=== PATIENT | male | born 1980 | race Caucasian/White ===

== ENCOUNTER 2020-03-13 07:46 | Day surgery (SDC) | payer OTHER, MEDICAID, SELFPAY ==
[2020-03-08 11:05] VITALS: BMI 27.7
[2020-03-13] VITALS (16 sets, daily range): BP systolic 101–140; BP diastolic 59–76; PULSE 60–89; RESP 14–169; TEMP 36.4–36.9; O2SAT 95–100; BMI 27.7
--- NOTE | 2020-03-13 | DI.RAD.S_ITS ---
PROCEDURE: XR PELVIS 1-2V INDICATIONS: total right hip TECHNIQUE: 1 view of the lower pelvis acquired. COMPARISON: [facility], , XR PELVIS WITH BILATERAL LATERAL HIPS, 09/20/2018, 0:23. FINDINGS: Bones: Patient is status post right hip arthroplasty, with hardware components in expected positions. The hip joint appears congruent. 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 Soft tissues: Overlying postoperative changes are noted. No suspicious soft tissue densities. IMPRESSION: Expected postoperative appearance Dictated by: Zaheer Fontana M.D. on 03/13/2020 at 15:32 Approved by: Zaheer Fontana M.D. on 03/13/2020 at 15:33
--- NOTE | 2020-03-13 09:20 | PM.PREOP ---
Pre-operative Note COVID-19 COVID-19 status: Negative Result date/Date tested (Pos, Neg/Pending): 03/11/20 Interval Note History & Physical reviewed/Exam performed by Physician: Yes Changes to H&P: No
[2020-03-13] MEDS: CEFAZOLIN 2 GM/100 ML FROZ.PIGGY IV ×2 (09:54→18:01)
[2020-03-13] MEDS: TRANEXAMIC ACID 1,000 MG VIAL 1000 MG INJ ×2 (10:22→11:12)
--- NOTE | 2020-03-13 10:35 | SUR.OPER ---
Lateral on padded OR bed. Gel axillary roll. Arms secured on padded armboard with pillow supporting top arm. Padded hip positioner braces x4 - anterior and posterior chest and pelvis. Additional gel pad used anterior pelvis. Gel pad under bottom leg from knee to foot and secured with tape over sheet.
[2020-03-13] MEDS: ROPIVACAINE 0.5% PF 5 MG/ML 20ML VIAL 60 ML INJ (10:39)
[2020-03-13] MEDS: MORPHINE 4 MG/ML INJ INJ (10:40)
[2020-03-13] MEDS: KETOROLAC 30 MG/ML VIAL IV (10:40)
[2020-03-13] MEDS: LACTATED RINGERS 1,000 ML 42 ML IV (11:17)
--- NOTE | 2020-03-13 11:30 | P.OP_ITS ---
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 The patient has pain with activities and at rest, limited ambulation and activity tolerance, difficulties with ADLs, and failure of conservative treatment. We have discussed the nature of condition, treatment options, risks and benefits, and patient elects to proceed with total hip arthroplasty and gives informed consent. Surgeon: Braulio Arizmendi Field Sales Executive: Rex Rocha Anesthesia Type: Spinal Operative Notes Closure Type: primary Specimen(s): none sent Prosthetic devices, grafts, tissues, transplants, or devices: Acetabulum: Kellogg [employer]hew R3 acetabular component size 54 mm Femoral component: Kellogg [employer]hew Anthology stem size 6 with standard offset Femoral head: 36 mm + 0 Oxinium Estimated Blood Loss (mL): 100 Blood products transfused: none Procedure in detail: After satisfaction induction of anesthetic, and administration of IV antibiotics, the patient was positioned in the lateral decubitus position with all bony prominences well padded and pelvic position s ecured using a hip general farm hand positioning device. Right hip and lower extremity prepped and draped in the usual sterile fashion, 1st dose of intravenous tranexamic acid was administered, then a longitudinal incision was created centered over the greater trochanter and carried sharply through the skin and subcutaneous tissues down to the fascia natacha which was divided longitudinally and retracted with a Charnley retractor. External rotators visualize, cut, tagged, and retracted posteriorly, then the capsule was cut in a T-type fashion with the corners tagged and retracted. Hip was dislocated and femoral neck cut made according to preoperative templating. Acetabular retractors then placed, and the acetabular labrum and osteophytes were excised. The acetabulum was then sequentially reamed to 53 mm with an excellent circumferential ream and fit with the trial. The trial component was removed and a permanent size 54 mm Kellogg [employer] Nephew R3 acetabular component was selected, positioned, and impacted with satisfactory position and fixation achieved. Permanent liner was then inserted with the elevated lip directed posteriorly. Soft tissue then removed off the lateral femoral neck in the lateral neck was entered using a box osteotome. T- handled reamers placed down the canal followed by sequential broaching to 6 with the final broach left in place for trial reduction which demonstrated excellent leg length, range of motion, and stability characteristics with a 36 mm +0 trial ball. The trial and broach were removed, and a permanent size 6 standard offset Kellogg and Nephew anthology stem was selected and inserted with excellent position and fixation achieved. Another trial reduction yielded the above characteristics so the trial ball was exchanged for a permanent 36 mm +0 Oxinium ball. The hip was irrigated and reduced and excellent leg length range of motion and stability characteristics were achieved and maintained. Periarticular tissues were infiltrated with ropivacaine, morphine, and Toradol. The hip was copiously irrigated, and the capsule repaired with #2 Ethibond, and the piriformis was repaired back to the greater trochanter with the same. Fascia natacha closed with interrupted #1 Ethibond sutures, and the subcutaneous tissues were closed in 2 layers of 0 Vicryl and 2 0 Vicryl. Skin was closed with karey and sterile dressings applied. Second dose of tranexamic acid was administered intravenously, and the anesthetic was terminated. Complications: none Post-operative Condition: stable Disposition: PACU Plan for aftercare: Patient will be admitted to the acute care chung, and anticipate discharge on postop day 1 with follow-up in office in 10-14 days. Outpatient physical therapy will be arranged and patient will continue to observe posterior hip precautions. Patient will continue use of postoperative aspirin for 6 weeks for DVT prophylaxis.
[2020-03-13] MEDS: fentaNYL 100 MCG/2 ML INJ IV ×2 (12:28→12:37)
[2020-03-13] MEDS: OXYCODONE/ACETAMINOPHEN 5/325 TABLET 1 TAB PO ×3 (13:07→22:34)
[2020-03-13] MEDS: LACTATED RINGERS 1,000 ML 125 ML IV ×2 (14:03→21:50)
[2020-03-13] MEDS: ACETAMINOPHEN 325 MG TABLET 650 MG PO ×2 (14:50→20:08)
--- NOTE | 2020-03-13 15:30 | PT.IIE ---
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) Surgery Performed Operation Date: 03/13/20 09:45 Actual Procedures p Total Hip Arthroplasty(Right) - Braulio Arizmendi MD Physical Therapy Inpatient Evaluation/Re-Eval M1 PT/OT-IP Prior Functional Status Start: 03/13/20 17:09 Freq: NEEDED Status: Active Protocol: Document 03/13/20 15:30 AB (Rec: 03/13/20 17:29 AB [id number]) Medical Review Prior Functional Status Medical History Reviewed Yes Communication able to make needs known Mobility and Gait pt stated that he is modified independent with all mobilities and amblation using SPC. stated that he has been having hip problems for ~ 1 year 1/2 and that his L hip is worse thatn R but R hip collapsed already and they have to do surgery on that first. Social History Household Members family Living Arrangements Mobile home Number of Floors (Floors) One Floor Number of Stairs To Enter/Railing? pt stated that he lives on a [employer] bus that they turned into a home has 3 steps to enter; has handle on the door of the bus; stated that they are going to put a ramp in there but currently does not have it yet Home Environment Tub/Shower Home Equipment Straight Cane,Bedside Commode, Hand Held Shower Additional Social History Comment pt has a standard vegetable picker walker. 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 M2 PT-IP Current Condition Start: 03/13/20 17:09 Freq: NEEDED Status: Active Protocol: Document 03/13/20 15:30 AB (Rec: 03/13/20 17:29 AB [email or web address]) Physical Therapy Current Condition Current Condition Evaluation Date 03/13/20 Treatment Diagnosis s/p R JULI posterior approach; difficulty in walking Onset Date 03/13/20 Precautions Posterior Hip Precautions No Hip Flexion > 90 degrees,No Hip Internal Rotation,No Hip Adduction Weight Bearing Status Weight Bearing Status Weight Bear as Tolerated Allowed Weight Bearing Amount (enter % RLE WBAT or #) (%) M3 PT-IP Subjective Start: 03/13/20 17:09 Freq: NEEDED Status: Active Protocol: Document 03/13/20 15:30 AB (Rec: 03/13/20 17:29 AB [email or web address]) Subjective Physical Therapy Visit Type Type Initial Evaluation Visit Start Time 15:30 Visit Stop Time 16:42 Total Visit Minutes 72 Number of BRANCH OPERATIONS SPECIALIST Visits 0 Physical Therapy Visit Comments Patient Comments agreeable to do PT Therapy Pain Assessment Pain When Pain Assessed At Rest Pain Present Pain Present Pain Reported Location Hip Intensity 7 Scale Used increases to 8/10 with mobility Pain Management Techniques Apply Cold,Distraction,Re- positioning,Timing of Activity with Medications M4 PT-IP Mobility and Gait Start: 03/13/20 17:09 Freq: NEEDED Status: Active Protocol: Document 03/13/20 15:30 AB (Rec: 03/13/20 17:29 AB [id number]) PT-Bed Mobility Assessment Supine to Sit Supine to Sit Maximum Assistance,1 Person Assistance Sit to Supine Sit to Supine Maximum Assistance,1 Person Assistance PT-Transfer Assessment Sit to and From Stand Sit to and from Stand Moderate Assistance,Maximum Assistance,1 Person Assistance ,Use of Upper Extremities Equipment Transfer Assistive Device Gait Belt,Front Wheeled Walker Orthotic/Prosthetic Devices or Brace: No Comments Mobility Comments pt educated on hip precautions . completed supine to sit max A and max cues. completed sit to stand mod to max A and max cues for hip precautions. pt gets anxious easily and is shaking during mobility. BP 117/69. pt was able to ambulate ~ 10 ft using FWW mod A and cues. requested to go back in bed max A for LE elevation. positioned in bed. call light and table placed within reach . informed pt to call his mom to bring his standard walker from home and set up caregiver training at ~ 1030 am. pt agreed. Pt requested PT to dispense him a FWW if he needs one for home. Gait Assessment Gait Gait Assistance Required: Moderate Assistance,1 Person Assist Distance (Feet) 10 Able to Maintain Weight Bearing Status Yes During Gait Assistive Devices Assistive Device Gait Belt,Front Wheeled Walker Orthotic/Prosthetic Devices or Brace: No Gait Deviations General Gait Pattern Antalgic,Decreased Stride Length,Decreased Feet Clearance,Wide Based Gait Factors Limiting Gait Function Factors Limiting Gait Function Decreased Activity Tolerance, Decreased Strength,Limited Range of Motion,Pain,Poor Balance,Poor Safety Awareness Comments Gait Comments presents with antalgic gait and wide JACINTO during standing and ambulation. needs cues to maintain hip precautions during turns. PT-Balance Assessment Sitting Balance and Reactions Static Sitting Balance Ability Good Dynamic Sitting Balance Ability Good Standing Balance and Reactions Static Standing Balance Ability Fair Dynamic Standing Balance Ability Fair Device Used FWW M5 PT-IP Objective Assessments Start: 03/13/20 17:09 Freq: NEEDED Status: Active Protocol: Document 03/13/20 15:30 AB (Rec: 03/13/20 17:29 AB [email or web address]) Orientation Orientation/Cognition Level of Alertness Alert Orientation Name,Age,Birthday,Month,Date, Year,Day of Week,Place, Situation Language Function Ability No Deficits Noted Safety Awareness Understands Safety Issues Memory Description No Deficits Noted Gross Range of Motion Lower Extremity ROM Impairments increase bilateral LE guarding with pt anticipating pain affecting ROM Strength Lower Extremity Strength Assessment Bilaterally Impaired Comments Strength Comments RLE : hip 2+/5; knee 3+/5 LLE: 3+/5 Muscle Tone Muscle Tone WNL Yes M6 PT-IP Treatment Start: 03/13/20 17:09 Freq: NEEDED Status: Active Protocol: Document 03/13/20 15:30 AB (Rec: 03/13/20 17:29 AB [email or web address]) Physical Therapy Treatment Exercises Exercises Heel Slides Education Education Provided Precautions,Weight Bearing Status,Post-Op Packet,Safety M7 PT-IP Assessment and Plan Start: 03/13/20 17:09 Freq: NEEDED Status: Active Protocol: Document 03/13/20 15:30 AB (Rec: 03/13/20 17:29 AB [email or web address]) PT Summary Assessment and Plan Potential Rehabilitation Potential Good Status of Condition at Evaluation Evolving Summary Impairments Pain,ROM,Strength,Balance, Coordination,Sensation,Tone, Cognition,Bed Mobility, Transfers,Gait,Activity Tolerance Assessment Summary pt s/p R JULI posterior approach and just had surgery this morning. pt also has L hip problems and stated that it was worse that the R hip. pt requiring max A with mobility. pt plans to go home and stated that his mom will be able to assist. set up caregiver training tomorrow morning 03/14/20 at 1030 am. d /c plan depending progress and if his mom will be able to assist him safely. pt stated that he is set up for outpt PT. will continue to assess progress. Goals Bed Mobility Goal Standby Assistance Transfer Goal Standby Assistance,Front Wheeled Walker Gait Goal Standby Assistance,Front Wheel Walker Gait Distance 150 Other Goals up/down 3 steps and 1 handle min A Days to Meet Goals 5 Frequency of Treatment Frequency Of Treatment Twice a Day Treatment Plan Physical Therapy Treatment Plan Bed Mobility Training,Transfer Training,Gait Training, Therapeutic Exercise,Balance Retraining,Post Op Education, Discharge Planning,Hot or Cold Pack,Neuromuscular Re-ed, Coordination Retraining,Manual Therapy Recommendations To Nursing Amount of Assist Needed 1 Person Assist Discharge Recommendations PT Discharge Recommendations Home with Assistance,SNF Rehab ,Outpatient PT Other Discharge Recommendations depending on progress: SNF vs home with assist and outpt PT Equipment Needed for Home Before FWW if not safe with standard Discharge walker Transportation Needs at Discharge Private Vehicle,Wheelchair/ Cabulance
[2020-03-13] MEDS: BUTORPHANOL 1 MG/ML VIAL 0.5 MG IV (20:02)
[2020-03-13] MEDS: DOCUSATE 100 MG CAPSULE PO (20:08)
[2020-03-13] MEDS: ASPIRIN EC 81 MG TABLET PO (20:08)
[2020-03-13] MEDS: hydrOXYzine pamoate 25 MG CAPSULE PO (22:34)
[2020-03-14] MEDS: CEFAZOLIN 2 GM/100 ML FROZ.PIGGY IV (02:29)
[2020-03-14 02:58] VITALS: BP 139/78; PULSE 77; RESP 15; TEMP 36.4; O2SAT 99
--- NOTE | 2020-03-14 04:34 | PC.NURSE ---
Patient VSS, lung sound clear, pain is 5-6/10, denies nausea. PRN Percocet Q4. Patient CMS intact, bulky dressing is clean/dry/intact.
[2020-03-14] MEDS: DOCUSATE 100 MG CAPSULE PO (08:18)
[2020-03-14] MEDS: ACETAMINOPHEN 325 MG TABLET 650 MG PO ×2 (08:18→14:26)
[2020-03-14] MEDS: ASPIRIN EC 81 MG TABLET PO (08:18)
[2020-03-14] MEDS: OXYCODONE IR 5 MG TABLET PO ×3 (08:19→14:51)
[2020-03-14] MEDS: hydrOXYzine pamoate 25 MG CAPSULE PO ×2 (08:21→14:26)
[2020-03-14 09:09] VITALS: BP 134/72; PULSE 87; RESP 16; TEMP 36.8; O2SAT 99
[2020-03-14 11:00] VITALS: BP 127/77; PULSE 82; RESP 19; TEMP 36.8; O2SAT 99
--- NOTE | 2020-03-14 11:16 | PT.IPTN ---
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) Surgery Performed Operation Date: 03/13/20 09:45 Actual Procedures p Total Hip Arthroplasty(Right) - Braulio Arizmendi MD Physical Therapy Treatment Note M2 PT-IP Current Condition Start: 03/13/20 17:09 Freq: NEEDED Status: Active Protocol: Document 03/13/20 15:30 AB (Rec: 03/13/20 17:29 AB [id number]) Physical Therapy Current Condition Current Condition Evaluation Date 03/13/20 Treatment Diagnosis s/p R JULI posterior approach; difficulty in walking Onset Date 03/13/20 Precautions Posterior Hip Precautions No Hip Flexion > 90 degrees,No Hip Internal Rotation,No Hip Adduction Weight Bearing Status Weight Bearing Status Weight Bear as Tolerated Allowed Weight Bearing Amount (enter % RLE WBAT or #) (%) M3 PT-IP Subjective Start: 03/13/20 17:09 Freq: NEEDED Status: Active Protocol: Document 03/14/20 10:33 KS (Rec: 03/14/20 12:57 KS [id number]) Subjective Physical Therapy Visit Type Type Treatment Note Visit Start Time 10:33 Visit Stop Time 11:16 Total Visit Minutes 43 Number of TRAY FILLER Visits 1 Physical Therapy Visit Comments Patient Comments Pt agreeable to work w/ therapy. Pts mom present during treatment. Therapy Pain Assessment Pain When Pain Assessed During Mobility Pain Present Pain Present Pain Reported Location Hip Scale Used no number given Description Pulling,Sharp,Tightness, Throbbing Pain Behaviors Facial Grimacing,Guarding, Holding Area,Moaning, Restlessness,Wincing Pain Management Techniques Elevation,Re-positioning, Timing of Activity with Medications M4 PT-IP Mobility and Gait Start: 03/13/20 17:09 Freq: NEEDED Status: Active Protocol: Document 03/14/20 10:33 KS (Rec: 03/14/20 12:57 KS [id number]) PT-Bed Mobility Assessment Supine to Sit Supine to Sit Contact Guard Assistance,1 Person Assistance Scooting Scooting to Edge of Bed Contact Guard Assistance PT-Transfer Assessment Sit to and From Stand Sit to and from Stand Minimal Assistance,1 Person Assistance,Use of Upper Extremities Equipment Transfer Assistive Device Gait Belt,Front Wheeled Walker Orthotic/Prosthetic Devices or Brace: No Transfers Transfer Destination Chair,Wheelchair Transfer Technique pt ambulated w/ FWW Transfer Ability Level of Assist Minimal Assistance,1 Person Assistance,Use of Upper Extremities Comments Mobility Comments Pt in bed upon arrival from therapy and able to recall 3/3 precautions. Pt CGA for sup<> sit and scooting EOB, but moved slowly and expressed high level of pn despite recent pn meds. Pt Min A for sit<>stand from bed w/ FWW. Pt performed 30 seconds weight shifting prior to initiating gait training and relied heavily on use of BUE to off load BLE. Pt then ambulated ~ 25 ft w/ FWW and Min A and then sat in w/c CGA w/ cues before being transferred to w/ c to transport to stairs. Pt then was able to complete 1 platform step w/ Min A mod cues w/ FWW, but complained of high pain. Pt ambulated ~60 ft back to room Min A w/ FWW and CGA for stand<>sit in chair. Will conduct caregiver training w/ pts mother this afternoon. Pt left in room w/ BANDER AND CELLOPHANER MACHINE HELPER. Gait Assessment Gait Gait Assistance Required: Minimum Assistance,1 Person Assist Distance (Feet) 85 Able to Maintain Weight Bearing Status Yes During Gait Assistive Devices Assistive Device Gait Belt,Front Wheeled Walker Orthotic/Prosthetic Devices or Brace: No Gait Deviations General Gait Pattern Antalgic,Decreased Stride Length,Decreased Feet Clearance,Wide Based Gait Factors Limiting Gait Function Factors Limiting Gait Function Decreased Activity Tolerance, Decreased Strength,Limited Range of Motion,Pain,Poor Balance,Poor Safety Awareness Comments Gait Comments Pt ambulated ~85 ft total w/ Min A and cues w/ FWW. Pt relied heavily on use of FWW for support to offload weight on BLE. Stair Climbing Assessment Evaluation Level of Assist On Stairs Minimal Assistance,1 Person Assistance Devices Stair Climbing Assistive Devices Front Wheel Walker Technique/Endurance Stair Climbing Direction Ascend and Descend Stair Climbing Technique Step to Step Number of Steps Climbed 1 Stair Climbing Set # Repetitions (reps) 1 Comments Stair Climbing Comments Pt completed 1 platform step w / FWW and Min A and cues for sequencing. Pt will need to complete 3 steps w/ R rail before returning home, but was not able to complete this AM d/t pain. Will assess this afternoon. PT-Balance Assessment Sitting Balance and Reactions Static Sitting Balance Ability Good Dynamic Sitting Balance Ability Good Standing Balance and Reactions Static Standing Balance Ability Fair Dynamic Standing Balance Ability Fair Device Used FWW M5 PT-IP Objective Assessments Start: 03/13/20 17:09 Freq: NEEDED Status: Active Protocol: Document 03/13/20 15:30 AB (Rec: 03/13/20 17:29 AB [id number]) Orientation Orientation/Cognition Level of Alertness Alert Orientation Name,Age,Birthday,Month,Date, Year,Day of Week,Place, Situation Language Function Ability No Deficits Noted Safety Awareness Understands Safety Issues Memory Description No Deficits Noted Gross Range of Motion Lower Extremity ROM Impairments increase bilateral LE guarding with pt anticipating pain affecting ROM Strength Lower Extremity Strength Assessment Bilaterally Impaired Comments Strength Comments RLE : hip 2+/5; knee 3+/5 LLE: 3+/5 Muscle Tone Muscle Tone WNL Yes M6 PT-IP Treatment Start: 03/13/20 17:09 Freq: NEEDED Status: Active Protocol: Document 03/14/20 10:33 KS (Rec: 03/14/20 12:57 KS [id number]) Physical Therapy Treatment Education Education Provided Precautions,Weight Bearing Status,Post-Op Packet,Safety M7 PT-IP Assessment and Plan Start: 03/13/20 17:09 Freq: NEEDED Status: Active Protocol: Document 03/14/20 10:33 KS (Rec: 03/14/20 12:57 KS [id number]) PT Summary Assessment and Plan Potential Rehabilitation Potential Good Status of Condition at Evaluation Evolving Summary Impairments Pain,ROM,Strength,Balance, Coordination,Sensation,Tone, Cognition,Bed Mobility, Transfers,Gait,Activity Tolerance Assessment Summary Pt CGA for bed mobility, Min A and cues for sit<>stand, ambulation and stairs w/ FWW. Pt continues to c/o high level of pain in B hips. He was able to tolerate ~85 total ft ambulation w/ FWW and completed 1 platform step. Pt and his mother state they will make some phone calls to see if there is another place he can stay that is more accessible. Will complete caregiver training w/ pts mom this afternoon. If pt is returning home, he will need to complete 3 steps w/ R rail w/ assist provided by his mother prior to d/c. Goals Bed Mobility Goal Standby Assistance Transfer Goal Standby Assistance,Front Wheeled Walker Gait Goal Standby Assistance,Front Wheel Walker Gait Distance 150 Other Goals up/down 3 steps and 1 handle min A Days to Meet Goals 5 Frequency of Treatment Frequency Of Treatment Twice a Day Treatment Plan Physical Therapy Treatment Plan Bed Mobility Training,Transfer Training,Gait Training, Therapeutic Exercise,Balance Retraining,Post Op Education, Discharge Planning,Hot or Cold Pack,Neuromuscular Re-ed, Coordination Retraining,Manual Therapy Recommendations To Nursing Amount of Assist Needed 1 Person Assist Discharge Recommendations PT Discharge Recommendations Home with Assistance,SNF Rehab ,Outpatient PT Other Discharge Recommendations depending on progress: SNF vs home with assist and outpt PT Equipment Needed for Home Before FWW if not safe with standard Discharge walker Transportation Needs at Discharge Private Vehicle,Wheelchair/ Cabulance
--- NOTE | 2020-03-14 11:47 | CM.IDA ---
Initial DCP Assessment Note Pt is a 39 yo male, currently living in a bus on mom's property in [place] , now POD#1 from Rt hip surgery w/ Dr Arizmendi PCP: [facility] Payer: [employer]inated [employer] Reviewed chart, pt discussed in multidisciplinary rounds this morning. Therapy has cleared pt for return home after family cg this AM at 1030...home expected today w/family to assist and pt has planned for home, DC order from [facility] has already been initiated this morning. No needs expected from DC planning team although will remain available in case this changes today. MELVA King
--- NOTE | 2020-03-14 13:56 | PT.IPTN ---
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) Surgery Performed Operation Date: 03/13/20 09:45 Actual Procedures p Total Hip Arthroplasty(Right) - Braulio Arizmendi MD Physical Therapy Treatment Note M2 PT-IP Current Condition Start: 03/13/20 17:09 Freq: NEEDED Status: Discharge Protocol: Document 03/13/20 15:30 AB (Rec: 03/13/20 17:29 AB [id number]) Physical Therapy Current Condition Current Condition Evaluation Date 03/13/20 Treatment Diagnosis s/p R JULI posterior approach; difficulty in walking Onset Date 03/13/20 Precautions Posterior Hip Precautions No Hip Flexion > 90 degrees,No Hip Internal Rotation,No Hip Adduction Weight Bearing Status Weight Bearing Status Weight Bear as Tolerated Allowed Weight Bearing Amount (enter % RLE WBAT or #) (%) M3 PT-IP Subjective Start: 03/13/20 17:09 Freq: NEEDED Status: Discharge Protocol: Document 03/14/20 13:32 KS (Rec: 03/14/20 15:46 KS [id number]) Subjective Physical Therapy Visit Type Type Treatment Note Visit Start Time 13:32 Visit Stop Time 13:56 Total Visit Minutes 24 Number of END WORKER Visits 2 Physical Therapy Visit Comments Patient Comments Pt agreeable to work w/ therapy. Pts mom present for caregiver training. Therapy Pain Assessment Pain When Pain Assessed During Mobility Pain Present Pain Present Pain Reported Location Hip Intensity 7 Scale Used Numeric (0 - 10) Description Pulling,Sharp,Tightness, Throbbing Pain Behaviors Facial Grimacing,Guarding, Holding Area,Moaning, Restlessness,Wincing Pain Management Techniques Re-positioning,Timing of Activity with Medications M4 PT-IP Mobility and Gait Start: 03/13/20 17:09 Freq: NEEDED Status: Discharge Protocol: Document 03/14/20 13:32 KS (Rec: 03/14/20 15:46 KS [id number]) PT-Bed Mobility Assessment Supine to Sit Supine to Sit Standby Assistance,1 Person Assistance Sit to Supine Sit to Supine Contact Guard Assistance,1 Person Assistance,Bedrails Scooting Scooting to Edge of Bed Standby Assistance PT-Transfer Assessment Sit to and From Stand Sit to and from Stand Contact Guard Assistance,1 Person Assistance,Use of Upper Extremities Equipment Transfer Assistive Device Gait Belt,Front Wheeled Walker Orthotic/Prosthetic Devices or Brace: No Transfers Transfer Destination Bed,Chair Transfer Technique pt ambulated w/ FWW Transfer Ability Level of Assist Contact Guard Assistance,1 Person Assistance,Use of Upper Extremities Comments Mobility Comments Pt in chair upon arrival from therapy w/ mom present for caregiver training. Pt SBA for scooting to edge of chair and CGA provided by caregiver for sit<>stand w/ FWW. Pt then ambulated ~150 ft w/ FWW and CGA provided by caregiver, pt completed 3 steps w/ R rail and CGA and step to pattern, cues for sequencing. Pt returned to room and transferred into bed CGA w/ use of gait belt for LE guidance into bed. Pt and caregiver state they feel safe to perform transfers, stairs, and ambulation at home and have outpatient therapy set up . Pt plans of staying w/ grandparents who have a more accessible home. Pt has standard walker at home, which will be safest at this time. Gait Assessment Gait Gait Assistance Required: Contact Guard Assist,1 Person Assist Distance (Feet) 150 Able to Maintain Weight Bearing Status Yes During Gait Assistive Devices Assistive Device Gait Belt,Front Wheeled Walker Orthotic/Prosthetic Devices or Brace: No Gait Deviations General Gait Pattern Antalgic,Decreased Stride Length,Decreased Feet Clearance,Wide Based Gait Factors Limiting Gait Function Factors Limiting Gait Function Decreased Activity Tolerance, Decreased Strength,Limited Range of Motion,Pain,Poor Balance,Poor Safety Awareness Comments Gait Comments Pt ambulated ~150 ft w/ CGA and FWW. Pt continued to rely heavily on BUE to off weight BLE d/t pain. Stair Climbing Assessment Evaluation Level of Assist On Stairs Contact Guard Assistance,1 Person Assistance Devices Stair Climbing Assistive Devices Right Railing Technique/Endurance Stair Climbing Direction Ascend and Descend Stair Climbing Technique Step to Step Number of Steps Climbed 3 Stair Climbing Set # Repetitions (reps) 1 Comments Stair Climbing Comments Pt was able to ascend/ descended 3 steps w/ BUE on R rail for support and CGA provided safely by his caregiver. Both pt and caregiver state they feel safe to complete steps at home. PT-Balance Assessment Sitting Balance and Reactions Static Sitting Balance Ability Good Dynamic Sitting Balance Ability Good Standing Balance and Reactions Static Standing Balance Ability Fair Dynamic Standing Balance Ability Fair Device Used FWW M5 PT-IP Objective Assessments Start: 03/13/20 17:09 Freq: NEEDED Status: Discharge Protocol: Document 03/13/20 15:30 AB (Rec: 03/13/20 17:29 AB [id number]) Orientation Orientation/Cognition Level of Alertness Alert Orientation Name,Age,Birthday,Month,Date, Year,Day of Week,Place, Situation Language Function Ability No Deficits Noted Safety Awareness Understands Safety Issues Memory Description No Deficits Noted Gross Range of Motion Lower Extremity ROM Impairments increase bilateral LE guarding with pt anticipating pain affecting ROM Strength Lower Extremity Strength Assessment Bilaterally Impaired Comments Strength Comments RLE : hip 2+/5; knee 3+/5 LLE: 3+/5 Muscle Tone Muscle Tone WNL Yes M6 PT-IP Treatment Start: 03/13/20 17:09 Freq: NEEDED Status: Discharge Protocol: Document 03/14/20 13:32 KS (Rec: 03/14/20 15:46 KS [id number]) Physical Therapy Treatment Education Education Provided Precautions,Weight Bearing Status,Post-Op Packet,Safety M7 PT-IP Assessment and Plan Start: 03/13/20 17:09 Freq: NEEDED Status: Discharge Protocol: Document 03/14/20 13:32 KS (Rec: 03/14/20 15:46 KS [id number]) PT Summary Assessment and Plan Potential Rehabilitation Potential Good Status of Condition at Evaluation Evolving Summary Impairments Pain,ROM,Strength,Balance, Coordination,Sensation,Tone, Cognition,Bed Mobility, Transfers,Gait,Activity Tolerance Progress Towards Goals Slow Progress due to Pain Assessment Summary Pt SBA to CGA for mobility and CGA for ambulation and stairs w/ FWW. Completed caregiver training w/ pts mother who was able to provide appropriate cues and assist throughout treatment. Pt ambulated ~150 ft w/ FWW and completed 3 steps w/ R rail. Pt plans to stay w/ grandparents where he will have access to toilet riser and has standard walker. Goals Bed Mobility Goal Standby Assistance Transfer Goal Standby Assistance,Front Wheeled Walker Gait Goal Standby Assistance,Front Wheel Walker Gait Distance 150 Other Goals up/down 3 steps and 1 handle min A Days to Meet Goals 5 Frequency of Treatment Frequency Of Treatment Twice a Day Treatment Plan Physical Therapy Treatment Plan Bed Mobility Training,Transfer Training,Gait Training, Therapeutic Exercise,Balance Retraining,Post Op Education, Discharge Planning,Hot or Cold Pack,Neuromuscular Re-ed, Coordination Retraining,Manual Therapy Recommendations To Nursing Amount of Assist Needed 1 Person Assist Discharge Recommendations PT Discharge Recommendations Home with Assistance,SNF Rehab ,Outpatient PT Other Discharge Recommendations depending on progress: SNF vs home with assist and outpt PT Transportation Needs at Discharge Private Vehicle,Wheelchair/ Cabulance
--- NOTE | 2020-03-14 15:25 | PC.NURSE ---
Discharge instructions and home care handouts reviewed with patient, he and his mom have no further questions or concerns at this time. IV dc'd intact. Prescriptions given to patient to fill at pharmacy of choice. Dressing to right hip remains in place, CDI. Patient taken out for discharge to home by [employer] via wheelchair with all belongings. Patient states he will call Dr. Arizmendi's office to confirm the date of his follow up appointment.
== END 2020-03-14 15:27 | disposition home or self-care (01) ==
LOC: OR 07:53 → AC 13:48
PROVIDERS: Referring Provider Orthopaedic Surgery; Visit Provider Orthopaedic Surgery
PROC: 0SR90JZ Replacement of Right Hip Joint with Synthetic Substitute, Open Approach (ICD-10-PCS; CPT 27130; principal; 2020-03-13 09:45)
DX: M87.051 Idiopathic aseptic necrosis of right femur (principal); F17.210 Nicotine dependence, cigarettes, uncomplicated
CPT/HCPCS: 27130; 72170; 97116; 97162; 97530; C1776; J0595; J0690; J1100; J1885; J2250; J2270; J2274; J2405; J2704; J3010